=== PATIENT | male | born 1980 | race Caucasian/White ===

== ENCOUNTER 2017-02-17 11:07 | Emergency (ER) | payer SELFPAY ==
[2017-02-17 12:19] VITALS: BP 165/97
[2017-02-17] MEDS ORDERED: Albuterol 2.5 MG/3 ML NEB.SOL* (0.083%) INH ONE (13:05)
[2017-02-17] MEDS ORDERED: Ipratropium 0.5MG/2.5ML NEB* 0.5 MG/2.5 ML NEB.SOLN INH ONE (13:05)
--- NOTE | 2017-02-17 13:59 | UC ---
Dudley Cueto Anna, scribed for Eula Powers DO on 02/17/17 at 1305 . Respiratory Complaint HPI - HPI Summary HPI Summary: Patient is a 36 y/o male coming to [facility] [place] presenting with the gradual onset of an intermittent, productive cough that began midday four days ago. His chest congested. He has had a sore throat of severity 2/10. It does not hurt to swallow. His chest and throat feel pruritic and give him the urge to cough. He has had myalgia and SOB with wheezing. In the last few days, he has had nasal congestion. Denies fever, chills, ear ache, watery eyes, nausea, emesis, abdominal pain. He has not been using his inhaler. His history is significant for asthma and HTN. Patient medications were reviewed this visit. - History of Current Complaint Chief Complaint: UCRespiratory Stated Complaint: COUGH RESP ISSUE Time Seen by Provider: 02/17/17 12:53 Hx Obtained From: Patient Onset/Duration: Gradual Onset, Lasting Days, Still Present Severity Initially: Moderate Severity Currently: Moderate Pain Intensity: 2 Pain Scale Used: 0-10 Numeric Character: Cough: Productive Aggravating Factors: Nothing Alleviating Factors: Nothing Associated Signs And Symptoms: Positive: Wheezing, Nasal Congestion. Negative: Fever, Chills, Sinus Discomfort - Allergies/Home Medications Allergies/Adverse Reactions: Allergies Allergy/AdvReac Type Severity Reaction Status Date / Time CLAMS Allergy Nausea And Uncoded 02/17/17 12:19 Vomiting Home Medications: Home Medications Ibuprofen TAB* [Advil TAB*] 400 mg PO QID PRN 02/17/17 [History Confirmed ] PMH/Surg Hx/FS Hx/Imm Hx Cardiovascular History Of: Reports: Hypertension - NO TREATMENT/"MILD" PER PT. Respiratory History Of: Reports: Asthma - H/O Neurological History Of: Reports: Seizures - ONE EPISODE 5 YRS AGO, Migraine - 2 EPISODWS-ONE 5 YRS AGO AND ONE THIS WINTER. NO MEDS - Surgical History Surgical History: Yes Surgery Procedure, Year, and Place: RIGHT WRIST SURGERY - Family History Known Family History: Positive: Cardiac Disease, Hypertension - Social History Alcohol Use: Weekly Alcohol Amount: 3-4 drinks Substance Use Type: None Substance Use Comment - Amount & Last Used: TWICE A YEAR Smoking Status (MU): Former Smoker Have You Smoked in the Last Year: Yes When Did the Patient Quit Smoking/Using Tobacco: 2014 Household Exposure Type: Cigarettes - Immunization History Most Recent Influenza Vaccination: 2014 Review of Systems Constitutional: Negative Skin: Negative Eyes: Negative ENT: Sore Throat - pruritic, Other - nasal congestion Respiratory: Shortness Of Breath - with wheezing, Cough Cardiovascular: Chest Pain - chest "heaviness" Gastrointestinal: Negative Genitourinary: Negative Motor: Negative Neurovascular: Negative Musculoskeletal: Myalgia Neurological: Negative Psychological: Negative All Other Systems Reviewed And Are Negative: Yes Physical Exam Triage Information Reviewed: Yes Appearance: Well-Appearing, No Pain Distress, Well-Nourished Vital Signs: Initial Vital Signs Temp 98.0 F 02/17/17 12:17 Pulse 89 02/17/17 12:17 Resp 16 02/17/17 12:17 BP 165/97 02/17/17 12:17 Pulse Ox 98 02/17/17 12:17 BP upon PE 140/89. Elevated BP noted. Vital Signs Reviewed: Yes Eyes: Positive: Conjunctiva Clear. Negative: Discharge ENT: Positive: Hearing grossly normal, Pharynx normal, TMs normal. Negative: Nasal congestion, Nasal drainage, Tonsillar swelling, Tonsillar exudate, Trismus , Muffled/hoarse voice Neck: Positive: Supple, Nontender Respiratory: Positive: No respiratory distress, No accessory muscle use, Wheezing - Diffuse tight wheezing, all hankins Cardiovascular: Positive: RRR, No Murmur Musculoskeletal Exam: Normal Neurological: Positive: Alert, Muscle Tone Normal Psychological Exam: Normal Psychological: Positive: Age Appropriate Behavior Skin Exam: Other - warm, dry, normal color UC Diagnostic Evaluation - Laboratory O2 Sat by Pulse Oximetry: 98 Re-Evaluation - Re-Evaluation First Eval Re-Evaluation Time: 13:27 Change: Improved Comment: S/p nebulizer, there is subjective improvement in ease of breathing. On ausculation, wheezing is still present though somewhat dimminished with better air movement. Respiratory Course/Dx - Course Course Of Treatment: Discussed with patient the importance of following up on elevated blood pressure with primary care provider. - Differential Dx/Diagnosis Differential Diagnosis/HQI/PQRI: Asthma, Bronchitis, Lower Resp Infection Provider Diagnoses: URI. Bronchospasm. Blood pressure in poor control. Discharge - Discharge Plan Condition: Stable Disposition: HOME Prescriptions: Albuterol HFA INHALER* [Ventolin HFA Inhaler*] 2 puff INH Q4H PRN #1 mdi PRN Reason: Sob/Wheezing Benzonatate CAP* [Tessalon 100 MG CAP*] 100 mg PO TID PRN #30 cap PRN Reason: Cough guaiFENesin ER TAB [Mucinex*] 600 mg PO BID PRN #1 box PRN Reason: Cough guaiFENesin/CODIEN 100MG-10MG* [Robitussin AC 100Mg-10Mg*] 5 - 10 ml PO BEDTIME PRN #100 udc MDD 10ml PRN Reason: Cough predniSONE TAB* [Deltasone TAB*] 40 mg PO DAILY #10 tab Patient Education Materials: Upper Respiratory Infection (ED), Bronchospasm (ED ) Referrals: Mari Choe MD [Primary Care Provider] - If Needed Additional Instructions: INHALED BRONCHODILATORS: You have received a prescription for an inhaled bronchodilator -- a medication which stimulates the airways in the lung to dilate. This improves the flow of air in asthma, bronchitis, and emphysema. These medicines have some similarity to adrenaline, and can cause similar side effects: shakiness, racing heart, and a sense of nervousness. These side effects decrease with time. Contact your doctor if these side effects are severe. Do not over-use the medicine. Too-frequent use of the inhaler may make it ineffective. Call your doctor if the inhaler is not controlling your symptoms at the prescribed doses. COUGH-SUPPRESSANT & EXPECTORANT MEDICATION: You are to use a cough medication as needed for relief of symptoms. This medicine is a combination of an expectorant (to make the mucous thinner and more easily "coughed up") and a cough suppressant (to reduce the frequency of coughing). The cough-suppressant medicine is related to narcotics. You may experience mild nausea and sleepiness. Some patients who are very sensitive to narcotics may have stomach pain from this medicine. Taking the medicine with food reduces these side effects. Do not drive or work with machinery until you know how this medicine affects you. The expectorant should have no side effects. Iodine-containing expectorants (such as organidin) should not be taken by persons with active thyroid disease unless approved by your doctor. Call the doctor if you develop shortness of breath, hives, rash, itching, lightheadedness, or severe nausea and vomiting. EXPECTORANT MEDICATION: WE SENT IN A SCRIPT FOR MUCINEX SO THAT IT IS EASIER FOR YOU TO PICK THE RIGHT MED AT THE PHARMACY. HOWEVER, YOU CAN ALSO GO TO THE NATURAL FOOD STORE AND BUY PLAIN GUAIFENESIN WITHOU BINDERS OR FILLERS. An expectorant medicine has been prescribed. This type of drug makes mucous thinner, helping the sinuses, nose, and bronchial tubes to remain free of pus and mucous. Expectorants make a cough less severe and more comfortable, and help infected sinuses drain. In general, antihistamines defeat the purpose of the expectorant by making mucous thicker. They should be avoided unless specifically recommended by your physician. TESSALON PERLES: You have received a prescription for Tessalon Perles (benzonatate). This is a non-narcotic medicine for relief of cough. It usually works in about 15- 20 minutes and lasts around four hours. Tessalon Perles should be swallowed. They should not be chewed or dissolved in the mouth (this can produce temporary numbing of the mouth and choking can occur). If you develop any adverse effects such as wheezing, shortness of breath, hives, rash, itching, or lightheadedness, please return at once. CORTICOSTEROID MEDICATION: You have been given a medicine of the cortisone class. This medication is used to control inflammation or allergy. It is usually only given for a short period of time, until the acute process subsides. There are usually no side effects from short-term use of cortisone-like medications. Some persons feel an increased sense of well-being and are not sleepy at bedtime. Long-term use of cortisone medications is best avoided, unless required for a severe condition. If your condition does not remit, or relapses after the course of corticosteroid medication, you should consult your physician. Contact the physician if you develop lightheadedness, black or tarry stools , swelling of the legs, or significant rapid change in weight. The documentation as recorded by the Dudley morales Anna accurately reflects the service I personally performed and the decisions made by , Eula Powers DO.
== END 2017-02-17 13:50 | disposition home or self-care (01) ==
LOC: UCEAST 11:07
DX: J06.9 Acute upper respiratory infection, unspecified (principal); J98.01 Acute bronchospasm; I10 Essential (primary) hypertension; Z87.891 Personal history of nicotine dependence
CPT/HCPCS: 99212; G0463; J7644

== ENCOUNTER 2017-12-02 15:17 | Emergency (ER) | payer SELFPAY ==
[2017-12-02 15:27] VITALS: BP 143/102
--- NOTE | 2017-12-02 15:54 | RAD ---
INDICATION: Right hand injury. COMPARISON: Comparison is made with a prior x-ray study of the right wrist from February 27, 2016. TECHNIQUE: 4 views of the right hand were obtained. FINDINGS: There is soft tissue swelling present along the medial aspect of the hand and wrist. There appears to be a nondisplaced fracture present at the base of the fifth metacarpal. The patient is status post resection of the scaphoid lunate and triquetral bones. IMPRESSION: 1. NONDISPLACED FRACTURE BASE OF THE FIFTH METACARPAL. 2. POST SURGICAL CHANGES.
--- NOTE | 2017-12-02 16:15 | UC ---
Onel Cueto Gabriel, scribed for Thais Velez MD on 12/02/17 at 1534 . Hand/Wrist HPI - HPI Summary HPI Summary: This patient is a 37 year old M [place] [facility] [place] chief complaint of right hand pain since 3 weeks ago. Patient states he punched an immovable object and is since has been experiencing pain at the 5th metacarpal. The patient rates the pain 5/10 in severity. Pt states discomfort improves during the weekends, but increases when he goes back to work and starts using it again. pt iwth RHD. Patient denies numbness/tingling, wrist and shoulder pain. He is right handed and hand surgery to this hand [address] Schaffer. no analgesia taken No recent ice taken. Pt states in the days following the injury he had ecchymosis on the palmar surface. Since this Patients medication reviewed during this visit. - History Of Current Complaint Chief Complaint: UCUpperExtremity Stated Complaint: HAND INJURY Time Seen by Provider: 12/02/17 15:29 Hx Obtained From: Patient Onset/Duration: Lasting Weeks, Still Present Severity Initially: Moderate Severity Currently: Moderate Pain Intensity: 5 Pain Scale Used: 0-10 Numeric Aggravating Factor(s): Movement, Flexion, Extension Alleviating Factor(s): Rest Associated Signs And Symptoms: Negative: Numbness/Tingling - Allergies/Home Medications Allergies/Adverse Reactions: Allergies Allergy/AdvReac Type Severity Reaction Status Date / Time CLAMS Allergy Nausea And Uncoded 12/02/17 15:26 Vomiting Home Medications: Home Medications NK [No Home Medications Reported] 12/02/17 [History Confirmed 12/02/17] PMH/Surg Hx/FS Hx/Imm Hx Previously Healthy: Yes Other History Of: Negative For: Anticoagulant Therapy - Surgical History Surgical History: Yes Surgery Procedure, Year, and Place: RIGHT WRIST SURGERY - Family History Known Family History: Positive: Cardiac Disease, Hypertension - Social History Occupation: Employed Full-time Lives: With Family Alcohol Use: Weekly Alcohol Amount: 3-4 drinks Substance Use Type: None Substance Use Comment - Amount & Last Used: TWICE A YEAR Smoking Status (MU): Former Smoker Have You Smoked in the Last Year: Yes When Did the Patient Quit Smoking/Using Tobacco: 2014 Household Exposure Type: Cigarettes - Immunization History Most Recent Influenza Vaccination: 2014 Review of Systems Skin: Bruising - resolved Musculoskeletal: Other: - pain at right hand Neurological: Negative - numbness All Other Systems Reviewed And Are Negative: Yes Physical Exam Triage Information Reviewed: Yes Appearance: Well-Appearing, No Pain Distress, Well-Nourished Vital Signs: Initial Vital Signs Temp 97.2 F 12/02/17 15:22 Pulse 57 12/02/17 15:22 Resp 18 12/02/17 15:22 BP 143/102 12/02/17 15:22 Pulse Ox 99 12/02/17 15:22 Vital Signs Reviewed: Yes Eyes: Positive: Conjunctiva Clear ENT: Positive: Pharynx normal Neck: Positive: Supple Respiratory: Positive: No respiratory distress, No accessory muscle use Cardiovascular: Positive: Other: - 2+ radial, 2+ ulnar CBT 2 sec Musculoskeletal: Positive: Other: - + flex/ext elbow + supinate/pronate + flex/ ext wrist + TTP base 4/5th MC no pain other MC, all phalanges no snuffbox pain Neurological Exam: Normal Neurological: Positive: Alert, Muscle Tone Normal, Other: - + thumb up, a ok, finger cross, finger spread + gross sensation 5/5 grasp Psychological Exam: Normal Psychological: Positive: Normal Response To Family Procedures - Splinting Location: Forearm to hand- volar aspect + verbal permission Hand-Made Type: orthoglass Splint: volar Pre-Proc Neuro Vasc Exam: normal Post-Proc Neuro Vasc Exam: normal - Tolerated well Diagnostics - Radiology hand xray Radiology Interpretation Completed By: Radiologist - 1. NONDISPLACED FRACTURE BASE OF THE FIFTH METACARPAL. 2. POST SURGICAL CHANGES. Dr. Velez has reviewed this report. Hand/Wrist Course/Dx - Course Course Of Treatment: Blood pressure noted and patient informed to follow up with PCP. Pt with pain right 5th MC s/p puching object 3 weeks prior to presentation. Pt with nondisplaced fx tahir 5th MC. Placed in volar splint. pt referred to Dr. Schaffer - previous surgeon 2016. work note. sling. pt comfortable and in agreement with plan - Differential Dx/Diagnosis Provider Diagnoses: Elevated blood pressure without a previous diagnoses of hypertension. 5th MC fracture Discharge - Discharge Plan Condition: Stable Disposition: HOME Patient Education Materials: Hand Fracture (ED) Forms: *Work Release Referrals: Mari Choe MD [Primary Care Provider] - Jane Schaffer MD [Medical Doctor] - As Soon As Possible Additional Instructions: - wear splint until you are evaluated by the orthopedic provider - Okay to alternate ibuprofen (Advil, Motrin) and Tylenol every 3 hours for pain. Take with food - Okay to apply ice (not directly to skin) 2-3 times a day to help with swelling and pain - Contact the Dr Schaffer to schedule a follow-up appointment this week - avoid further trauma to the area Contact the orthopedic provider or return with questions or concerns Your blood pressure was elevated during today's visit. Please follow up with your primary care provider in 1-2 weeks. The documentation as recorded by the Onel morales Gabriel accurately reflects the service I personally performed and the decisions made by me, Thais Velez MD.
== END 2017-12-02 16:25 | disposition home or self-care (01) ==
LOC: UCEAST 15:17
DX: S62.346A Nondisplaced fracture of base of fifth metacarpal bone, right hand, initial encounter for closed fracture (principal); W22.09XA Striking against other stationary object, initial encounter; Y93.9 Activity, unspecified; Y92.9 Unspecified place or not applicable; R03.0 Elevated blood-pressure reading, without diagnosis of hypertension
CPT/HCPCS: 26600; 99212; G0463

== ENCOUNTER 2018-03-29 16:43 | Emergency (ER) | payer SELFPAY ==
[2018-03-29 16:48] VITALS: BP 146/103
--- NOTE | 2018-03-29 17:34 | UC ---
Cardiac HPI - HPI Summary HPI Summary: ONSET OF LEFT ANTERIOR CHEST PRESSURE THAT RADIATES UP INTO HIS LEFT NECK AND DOWN HIS ARM ASSOCIATED WITH SOME MILD SHORTNESS OF BREATH. STARTED ABOUT 1 PM TODAY WHEN PATIENT WAS REALING UP HIS GARDEN HOSE. PATIENT STATES HE "FEELS WEIRD ". HE DID SOME BRISK WALKING IN HIS DRIVEWAY AND STATES THE PAIN GOT A LITTLE BIT WORSE. HE WENT TO A PHARMACY AND CHECKED HIS BLOOD PRESSURE AND FOUND IT TO BE 155/110. HE DENIES NAUSEA. NO SWEATS. HAS A HISTORY OF HIGH BLOOD PRESSURE BUT IS NOT ON ANY MEDICATIONS HE IS WORKING ON EXERCISE AND WEIGHT LOSS. HE IS A FORMER SMOKER AND HAS A FAMILY HISTORY OF HEART DISEASE. HE HAD A SIMILAR EPISODE EARLIER IN THE WEEK BUT DID NOT SEEK ANY MEDICAL ATTENTION AT THAT TIME. PATIENT CHEWED ON 5-6 81MG EC [employer]. - History of Current Complaint Chief Complaint: UCChestPain Stated Complaint: CHEST PAIN,JAW PRESSURE Time Seen by Provider: 03/29/18 17:05 Hx Obtained From: Patient, Family/Histology Assistant - Onset/Duration: Sudden Onset, Lasting Hours, Still Present Timing: Constant Initial Severity: Moderate Current Severity: Moderate Pain Intensity: 2 Chest Pain Location: Left Anterior Character: Skipped Beats, Pressure/Squeezing Aggravating Factor(s): Exertion Alleviating Factor(s): Nothing Associated Signs & Symptoms: Positive: Chest Pain, Anxiety, SOB, Palpitations. Negative: Fever, Nausea/Vomiting - Allergy/Home Medications Allergies/Adverse Reactions: Allergies Allergy/AdvReac Type Severity Reaction Status Date / Time CLAMS Allergy Nausea And Uncoded 03/29/18 16:53 Vomiting PMH/Surg Hx/FS Hx/Imm Hx Cardiovascular History: Hypertension Respiratory History: Asthma Other History Of: Negative For: Anticoagulant Therapy - Surgical History Surgical History: Yes Surgery Procedure, Year, and Place: RIGHT WRIST SURGERY - Family History Known Family History: Positive: Cardiac Disease, Hypertension - Social History Alcohol Use: Weekly Alcohol Amount: 3-4 drinks Substance Use Type: None Substance Use Comment - Amount & Last Used: TWICE A YEAR Smoking Status (MU): Former Smoker Have You Smoked in the Last Year: Yes When Did the Patient Quit Smoking/Using Tobacco: 2014 Household Exposure Type: Cigarettes - Immunization History Most Recent Influenza Vaccination: 2014 Review of Systems Constitutional: Negative Respiratory: Shortness Of Breath Cardiovascular: Palpitations, Chest Pain Gastrointestinal: Negative Psychological: Anxious All Other Systems Reviewed And Are Negative: Yes Physical Exam Triage Information Reviewed: Yes Appearance: Well-Appearing, No Pain Distress, Well-Nourished Vital Signs: Initial Vital Signs Temp 98 F 03/29/18 16:45 Pulse 105 03/29/18 16:45 Resp 16 03/29/18 16:45 BP 146/103 03/29/18 16:45 Pulse Ox 100 03/29/18 16:45 Vital Signs Reviewed: Yes Eyes: Positive: Conjunctiva Clear ENT: Positive: Hearing grossly normal Neck: Positive: Supple, Nontender, No Lymphadenopathy Respiratory Exam: Normal Cardiovascular: Positive: Tachycardia Abdomen Description: Positive: Soft Musculoskeletal: Positive: No Edema Neurological: Positive: Alert Psychological: Positive: Normal Response To Family, Age Appropriate Behavior Skin: Negative: rashes Diagnostics - EKG Cardiac Rate: Tachycardia - 111BPM Cardiac Rhythm: Sinus: Normal Ectopy: PVCs ST Segment: Normal - Assessment/Plan Course Of Treatment: TO [facility] [place] [facility] BY AMBULANCE - Clinical Impression Provider Diagnoses: CHEST PAIN - Physician Notifications Discussed Patient Care With: Yung Cedillo - TO [facility] [facility] BY AMBULANCE Time Discussed With Above Provider: 17:36 Instructed by Provider To: MD Will See In ED Discharge - Sign-Out/Discharge Documenting (check all that apply): Discharge/Admit/Transfer - Discharge Plan Condition: Stable Disposition: TRANS HIGHER LVL OF CARE FAC Referrals: Mari Choe MD [Primary Care Provider] - - Billing Disposition and Condition Condition: STABLE Disposition: Trans Higher Lvl of Care Fac
== END 2018-03-29 17:45 | disposition short-term general hospital (02) ==
LOC: UCEAST 16:43
DX: R07.9 Chest pain, unspecified (principal); Z87.891 Personal history of nicotine dependence; Z82.49 Family history of ischemic heart disease and other diseases of the circulatory system; I10 Essential (primary) hypertension
CPT/HCPCS: 93005; 99213; G0463

== ENCOUNTER 2018-03-29 18:07 | Emergency (ER) | payer SELFPAY ==
[2018-03-29 19:07] LABS: ABS Basophils 0.1 10^3/ul (0-0.2); ABS Eosinophils 0 10^3/ul (0-0.6); ABS Lymphocytes 0.8 10^3/ul (1.0-4.8); ABS Monocytes 0.4 10^3/ul (0-0.8); ABS Neutrophils 5.4 10^3/ul (1.5-7.7); ABS Nucleated RBC 0 10^3/ul; Eosinophil % 0.6 % (0-6); Hematocrit 41 % (42-52); Hemoglobin 13.9 g/dl (14.0-18.0); Lymphocyte % 12.6 % (25-47); Mean Corpuscular HGB Conc 34 g/dl (31-36); Mean Corpuscular Hemoglobin 30 pg (27-31); Mean Corpuscular Volume 87 fL (80-94); Mean Platelet Volume 8.6 um3 (7.4-10.4); Nucleated Red Blood Cells % 0; Platelet Count 216 10^3/ul (150-450); Red Cell Distribution Width 14 % (10.5-15); White Blood Count 6.7 10^3/ul (3.5-10.8)
--- NOTE | 2018-03-29 19:13 | RAD ---
INDICATION: Chest pain. COMPARISON: Comparison is made with prior study from August 14, 2014. TECHNIQUE: A portable view of the chest was obtained. FINDINGS: Cardiac and mediastinal contours appear to be within normal limits. The lungs are clear. No pleural effusion is seen. IMPRESSION: NO EVIDENCE FOR ACUTE DISEASE.
[2018-03-29 19:28] LABS: EGFR Non-African American 93.2 (>60)
[2018-03-29 21:46] VITALS: BP 140/90
--- NOTE | 2018-03-29 21:51 | ED ---
Watson Cueto Tariq, scribed for Rustam Cabello MD on 03/29/18 at 1819 . HPI Chest Pain - HPI Summary HPI Summary: A 37 y/o male CHUCHO presents to ED c/o chest pain. According to the pt, he has felt pressure/sore in his chest since noon that is radiating to his armpit, arm and jaw. The pain started right at noon, but has varied in degrees ever since. Additionally, the pt noted he has been feeling anxious and a feeling that something is wrong. Patient denies SOB. He stated that he currently has no pain , but he feels aching all over his chest. He also gets winded easily with some active moment and exercise. The patient went to and found that his heart rate was 100 BPM and skipping a beat via EKG. Additionally, he has high blood pressure that is fluctuating. According to his PCP, he is borderline diabetic and does not take any medication. To alleviate symptoms, pt took aspirin (3 tablets at 1400), magnesium tablets and drank cocunut water. It was noted that the pt is currently on a diet plan and has lost 25 - [address] pounds[address] Mari Choe. PMHx of asthma (childhood asthmatic with broncospasms given two inhalers and albuterol, no current medication). FHx of COPD and NV. - History of Current Complaint Chief Complaint: EDChestPainROMI Time Seen by Provider: 03/29/18 18:12 Hx Obtained From: Patient Onset/Duration: Started Hours Ago, Still Present - Diffuse chest aching, Resolved - No chest pain Timing: Constant Current Severity: None Pain Intensity: 0 Pain Scale Used: 0-10 Numeric Chest Pain Location: Diffuse Chest Pain Radiates: Yes Chest Pain Radiates To:: Arm, Jaw, Neck Aggravating Factor(s): Other: - Active movement and exercise Alleviating Factor(s): Rest, OTC Meds, Other: - Magnesium tablets and coconut water Associated Signs and Symptoms: Positive: Chest Pain. Negative: Shortness of Breath - Allergy/Home Medications Allergies/Adverse Reactions: Allergies Allergy/AdvReac Type Severity Reaction Status Date / Time clams Allergy Nausea And Verified 03/29/18 18:15 Vomiting Home Medications: Home Medications Fish Oil 1,000 mg Softgel 1 cap PO DAILY 03/29/18 [History Confirmed 03/29/18] PMH/Surg Hx/FS Hx/Imm Hx Endocrine/Hematology History: Denies: Hx Anticoagulant Therapy, Hx Diabetes, Hx Thyroid Disease Cardiovascular History: Reports: Hx Hypertension - NO TREATMENT/"MILD" PER PT. Respiratory History: Reports: Hx Asthma - H/O, Hx Sleep Apnea - DOESN'T USE C- PAP Denies: Hx Chronic Obstructive Pulmonary Disease (COPD), Other Respiratory Problems/Disorders GI History: Reports: Hx Gastroesophageal Reflux Disease - INFREQUENT Denies: Hx Ulcer Musculoskeletal History: Reports: Hx Arthritis - RIGHT WRIST, Other Musculoskeletal History - H/O SCIATICA Sensory History: Denies: Hx Contacts or Glasses, Hx Hearing Aid Opthamlomology History: Denies: Hx Contacts or Glasses Neurological History: Reports: Hx Migraine - 2 EPISODWS-ONE 5 YRS AGO AND ONE THIS WINTER. NO MEDS, Hx Seizures - ONE EPISODE 5 YRS AGO, Other Neuro Impairments/Disorders - SCIATICA RIGHT WRIST PAIN - Surgical History Surgery Procedure, Year, and Place: RIGHT WRIST SURGERY Hx Anesthesia Reactions: No Infectious Disease History: No Infectious Disease History: Denies: Hx Clostridium Difficile, Hx Hepatitis, Hx Human Immunodeficiency Virus (HIV), Hx of Known/Suspected MRSA, Hx Shingles, Hx Tuberculosis, Hx Known/ Suspected VRE, Hx Known/Suspected VRSA, History Other Infectious Disease, Traveled Outside the [place] in Last 30 Days - Family History Known Family History: Positive: Cardiac Disease, Hypertension - Social History Alcohol Use: Weekly Alcohol Amount: 3-4 drinks Substance Use Type: Reports: None Substance Use Comment - Amount & Last Used: TWICE A YEAR Smoking Status (MU): Former Smoker Have You Smoked in the Last Year: Yes Review of Systems Negative: Fever Positive: Chest Pain Negative: Shortness Of Breath All Other Systems Reviewed And Are Negative: Yes Physical Exam - Summary Physical Exam Summary: Appearance: The patient is well-nourished in no acute distress and in no acute pain. Skin: The skin is warm and dry and skin color reflects adequate perfusion. HEENT: The head is normocephalic and atraumatic. The pupils are equal and reactive. The conjunctivae are clear and without drainage. Nares are patent and without drainage. Mouth reveals moist mucous membranes and the throat is without erythema and exudate. The external ears are intact. The ear canals are patent and without drainage. The tympanic membranes are intact. Neck: The neck is supple with full range of motion and non-tender. There are no carotid bruits. There is no neck vein distension. Respiratory: Chest is non-tender. Lungs are clear to auscultation and breath sounds are symmetrical and equal. Cardiovascular: Heart is regular rate and rhythm. There is no murmur or rub auscultated. There is no peripheral edema and pulses are symmetrical and equal. Abdomen: The abdomen is soft and non-tender. There are normal bowel sounds heard in all four quadrants and there is no organomegaly palpated. Musculoskeletal: There is no back tenderness noted. Extremities are non-tender with full range of motion. There is good capillary refill. There is no peripheral edema or calf tenderness elicited. Neurological: Patient is alert and oriented to person, place and time. The patient has symmetrical motor strength in all four extremities. Cranial nerves are grossly intact. Deep tendon reflexes are symmetrical and equal in all four extremities. Psychiatric: The patient has an appropriate affect and does not exhibit any anxiety or depression. Triage Information Reviewed: Yes Vital Signs On Initial Exam: Initial Vitals Temp Pulse Resp BP Pulse Ox 98.3 F 83 14 166/104 100 03/29/18 18:12 03/29/18 18:12 03/29/18 18:12 03/29/18 18:12 03/29/18 18:12 Vital Signs Reviewed: Yes Diagnostics - Vital Signs Vital Signs Temp Pulse Resp BP Pulse Ox 03/29/18 18:12 98.3 F 83 14 166/104 100 - Laboratory Lab Results: Lab Results 03/29/18 03/29/18 03/29/18 Range/Units 18:55 18:55 18:55 WBC 6.7 (3.5-10.8) 10^3/ul RBC 4.70 (4.00-5.40) 10^6/ul Hgb 13.9 L (14.0-18.0) g/dl Hct 41 L (42-52) % MCV 87 (80-94) fL MCH 30 (27-31) pg MCHC 34 (31-36) g/dl RDW 14 (10.5-15) % Plt Count 216 (150-450) 10^3/ul MPV 8.6 (7.4-10.4) um3 Neut % (Auto) 80.6 (38-83) % Lymph % (Auto) 12.6 L (25-47) % Grainger % (Auto) 5.3 (0-7) % Eos % (Auto) 0.6 (0-6) % Baso % (Auto) 0.9 (0-2) % Absolute Neuts (auto) 5.4 (1.5-7.7) 10^3/ul Absolute Lymphs (auto) 0.8 L (1.0-4.8) 10^3/ul Absolute Monos (auto) 0.4 (0-0.8) 10^3/ul Absolute Eos (auto) 0 (0-0.6) 10^3/ul Absolute Basos (auto) 0.1 (0-0.2) 10^3/ul Absolute Nucleated RBC 0 10^3/ul Nucleated RBC % 0 D-Dimer, Quantitative < 200 (Less Than 230) ng/mL Sodium 140 (135-145) mmol/L Potassium 4.0 (3.5-5.0) mmol/L Chloride 104 (101-111) mmol/L Carbon Dioxide 25 (22-32) mmol/L Anion Gap 11 (2-11) mmol/L BUN 12 (6-24) mg/dL Creatinine 0.91 (0.67-1.17) mg/dL Est GFR ( Amer) 112.8 (>60) Est GFR (Non-Af Amer) 93.2 (>60) BUN/Creatinine Ratio 13.2 (8-20) Glucose 95 (70-100) mg/dL Lactic Acid (0.5-2.0) mmol/L Calcium 9.7 (8.6-10.3) mg/dL Magnesium 2.3 (1.9-2.7) mg/dL Total Bilirubin 0.60 (0.2-1.0) mg/dL AST 17 (13-39) U/L ALT 22 (7-52) U/L Alkaline Phosphatase 37 (34-104) U/L Troponin I 0.01 (<0.04) ng/mL Total Protein 7.2 (6.4-8.9) g/dL Albumin 4.5 (3.2-5.2) g/dL Globulin 2.7 (2-4) g/dL Albumin/Globulin Ratio 1.7 (1-3) TSH 1.21 (0.34-5.60) mcIU/mL 03/29/18 03/29/18 Range/Units 18:55 21:14 WBC (3.5-10.8) 10^3/ul RBC (4.00-5.40) 10^6/ul Hgb (14.0-18.0) g/dl Hct (42-52) % MCV (80-94) fL MCH (27-31) pg MCHC (31-36) g/dl RDW (10.5-15) % Plt Count (150-450) 10^3/ul MPV (7.4-10.4) um3 Neut % (Auto) (38-83) % Lymph % (Auto) (25-47) % Grainger % (Auto) (0-7) % Eos % (Auto) (0-6) % Baso % (Auto) (0-2) % Absolute Neuts (auto) (1.5-7.7) 10^3/ul Absolute Lymphs (auto) (1.0-4.8) 10^3/ul Absolute Monos (auto) (0-0.8) 10^3/ul Absolute Eos (auto) (0-0.6) 10^3/ul Absolute Basos (auto) (0-0.2) 10^3/ul Absolute Nucleated RBC 10^3/ul Nucleated RBC % D-Dimer, Quantitative (Less Than 230) ng/mL Sodium (135-145) mmol/L Potassium (3.5-5.0) mmol/L Chloride (101-111) mmol/L Carbon Dioxide (22-32) mmol/L Anion Gap (2-11) mmol/L BUN (6-24) mg/dL Creatinine (0.67-1.17) mg/dL Est GFR ( Amer) (>60) Est GFR (Non-Af Amer) (>60) BUN/Creatinine Ratio (8-20) Glucose (70-100) mg/dL Lactic Acid 1.3 (0.5-2.0) mmol/L Calcium (8.6-10.3) mg/dL Magnesium (1.9-2.7) mg/dL Total Bilirubin (0.2-1.0) mg/dL AST (13-39) U/L ALT (7-52) U/L Alkaline Phosphatase (34-104) U/L Troponin I 0.00 (<0.04) ng/mL Total Protein (6.4-8.9) g/dL Albumin (3.2-5.2) g/dL Globulin (2-4) g/dL Albumin/Globulin Ratio (1-3) TSH (0.34-5.60) mcIU/mL Result Diagrams: 03/29/18 18:55 03/29/18 18:55 Lab Statement: Any lab studies that have been ordered have been reviewed, and results considered in the medical decision making process. - Radiology CXR Xray Interpretation: No Acute Changes Radiology Interpretation Completed By: Radiologist - NO EVIDENCE FOR ACUTE DISEASE. ED PHYSICIAN REVIEWED THIS RADIOLOGY REPORT. - EKG 184 Cardiac Rate: NL - 75 BPM EKG Rhythm: Sinus Rhythm Re-Evaluation - Re-Evaluation First Eval Re-Evaluation Time: 21:46 Comment: TROPONIN IS 0.00. DISCUSSED DISCHARGE WITH PATIENT. Chest Pain Course/Dx - Course Course Of Treatment: Mr. Aguilar came in for an atypical chest pain. He doesn't have a lot in the way of risk factors and his EKG, chest x-ray and labs including d-dimer and a delayed troponin were all negative. I recommended follow-up with his PCP. He did have a couple of PVCs and we talked about that also. - Diagnoses Provider Diagnoses: Chest pain Discharge - Sign-Out/Discharge Documenting (check all that apply): Discharge/Admit/Transfer - DISCHARGE - Discharge Plan Condition: Stable Disposition: HOME Patient Education Materials: Chest Pain (ED) Referrals: Mari Choe MD [Primary Care Provider] - 3 Days (FOLLOW UP WITH PRIMARY CARE PHYSICIAN IN 2-3 DAYS.) Additional Instructions: RETURN TO THE ED FOR ANY NEW OR WORSENING SYMPTOMS. - Billing Disposition and Condition Condition: STABLE Disposition: Home The documentation as recorded by the Watson morales Tariq accurately reflects the service I personally performed and the decisions made by me, Rustam Cabello MD.
== END 2018-03-29 22:05 | disposition home or self-care (01) ==
LOC: ED 18:07
DX: R07.9 Chest pain, unspecified (principal); Z87.891 Personal history of nicotine dependence; Z86.79 Personal history of other diseases of the circulatory system; Z82.49 Family history of ischemic heart disease and other diseases of the circulatory system
CPT/HCPCS: 36415; 71045; 80053; 83605; 83735; 84443; 84484; 85025; 85379; 93005; 99283

== ENCOUNTER 2018-09-17 14:33 | Emergency (ER) | payer MEDICAID, OTHER ==
[2018-09-17 15:05] VITALS: BP 150/88
--- NOTE | 2018-09-17 15:20 | UC ---
Truncal Trauma HPI - HPI Summary HPI Summary: 38 yo male presents s/p mechanical fall. He tells me that last night he slipped and his right side fell onto concrete steps. Did not hit his head or have LOC. The area hurt, but wasn't too bad at the time. This morning he has increased pain and hurts to take a deep breath. He took ibuprofen this morning with little relief. Has not been applying ice. Denies coughing, SOB, or chest pain. - History Of Current Complaint Chief Complaint: UCUpperExtremity Stated Complaint: RIB INJURY Time Seen by Provider: 09/17/18 15:20 Hx Obtained From: Patient Severity Initially: Moderate Severity Currently: Moderate Pain Intensity: 7 Pain Scale Used: 0-10 Numeric Mechanism Of Injury: Blunt Trauma - Allergies/Home Medications Allergies/Adverse Reactions: Allergies Allergy/AdvReac Type Severity Reaction Status Date / Time clams Allergy Nausea And Verified 09/17/18 15:04 Vomiting PMH/Surg Hx/FS Hx/Imm Hx - Additional Past Medical History Additional PMH: None Other History Of: Negative For: Anticoagulant Therapy - Surgical History Surgical History: Yes Surgery Procedure, Year, and Place: RIGHT WRIST SURGERY - Family History Known Family History: Positive: Cardiac Disease, Hypertension - Social History Occupation: Employed Full-time Lives: With Family Alcohol Use: Weekly Alcohol Amount: 3-4 drinks Substance Use Type: None Substance Use Comment - Amount & Last Used: TWICE A YEAR Smoking Status (MU): Former Smoker Have You Smoked in the Last Year: Yes When Did the Patient Quit Smoking/Using Tobacco: 2015 Household Exposure Type: Cigarettes - Immunization History Most Recent Influenza Vaccination: 2014 Review of Systems All Other Systems Reviewed And Are Negative: Yes Constitutional: Positive: Negative Skin: Positive: Negative Respiratory: Positive: Negative Cardiovascular: Positive: Negative Gastrointestinal: Positive: Negative Neurovascular: Positive: Negative Musculoskeletal: Positive: Other: - Right rib pain Neurological: Positive: Negative Psychological: Positive: Negative Physical Exam - Summary Physical Exam Summary: GENERAL: NAD. WDWN. No pain distress. SKIN: No rashes, sores, lesions, or open wounds. NECK: Supple. Nontender. No lymphadenopathy. CHEST: CTAB. No r/r/w. No accessory muscle use. Breathing comfortably and in no distress. CV: RRR. Without m/r/g. Pulses intact. Cap refill <2seconds ABDOMEN: Soft. NTTP. No distention or guarding. Bowel sounds present. No ecchymosis MSK: Mild TTP over 7th and 8th right lateral rib. No ecchymosis or open wound. NEURO: Alert. PSYCH: Age appropriate behavior. Triage Information Reviewed: Yes Vital Signs: Initial Vital Signs Temp 98.2 F 09/17/18 15:01 Pulse 88 09/17/18 15:01 Resp 16 09/17/18 15:01 BP 150/88 09/17/18 15:01 Pulse Ox 99 09/17/18 15:01 Vital Signs Reviewed: Yes Truncal Trauma Course/Dx - Course Course Of Treatment: XR: IMPRESSION: NO DISPLACED RIB FRACTURE OR PNEUMOTHORAX. Discussed results with pt. Advised to ice the area and take ibuprofen. Will rx for lidoderm patch prn. - Differential Dx/Diagnosis Provider Diagnosis: Contusion of rib on right side Discharge - Sign-Out/Discharge Documenting (check all that apply): Patient Departure All imaging exams completed and their final reports reviewed: Yes - Discharge Plan Condition: Stable Disposition: HOME Prescriptions: Lidocaine PATCH 5%* [Lidoderm 5% Patch*] 1 patch TRANSDERM DAILY PRN #1 box PRN Reason: Pain Patient Education Materials: Rib Contusion (ED) Referrals: Mari Choe MD [Primary Care Provider] - Additional Instructions: If you develop a fever, shortness of breath, chest pain, new or worsening symptoms - please call your PCP or go to the ED. Your blood pressure was high at todays visit. Please see your primary provider within 4 weeks for recheck and re-evaluation. Rest and apply ice to the area Take slow deep breaths and try to avoid shallow breathing - Billing Disposition and Condition Condition: STABLE Disposition: Home
[2018-09-17] MEDS ORDERED: Ibuprofen TAB* 600 MG PO ONE (16:04)
== END 2018-09-17 16:10 | disposition home or self-care (01) ==
LOC: UCEAST 14:33
DX: S20.211A Contusion of right front wall of thorax, initial encounter (principal); Z91.013 Allergy to seafood; Z87.891 Personal history of nicotine dependence; W01.0XXA Fall on same level from slipping, tripping and stumbling without subsequent striking against object, initial encounter; Y92.9 Unspecified place or not applicable
CPT/HCPCS: 99212; A9270-GY; G0463

== ENCOUNTER 2019-09-22 10:00 | Emergency (ER) | payer OTHER ==
--- OUTSIDE RECORDS SUMMARY | 2019-09-22 10:06 | XMS REPORT | Continuity of Care Document ---
:1980 External Reference #:[id number] Author Name Kimberly Reyez MD Address [address] [place] [address] Problems Active Problems Provider Date Fracture of metacarpal bone Onset: 12/03/2017 Fracture of scaphoid bone of wrist Onset: 02/03/2016 Obesity Onset: 01/13/2016 Social History Type Date Description Comments Sex Unknown Tobacco Use Start: Unknown End: Unknown Patient is a former smoker Smoking Status Reviewed: 09/04/19 Patient is a former smoker Allergies, Adverse Reactions, Alerts Description No Known Drug Allergies Medications Description No Active Medications Immunizations CPT Code Status Date Vaccine Lot # [id number] Given 09/04/2019 Tdap - Boostrix/Adacel [id number] [id number] Given 09/04/2019 Flu < 65 years [id number] 53871 Given 12/29/2015 Influenza Virus Vaccine, Quadrivalent, Split, Im Use 0.25ML 89344 Given 12/29/2015 Influenza Virus Vaccine, Quadrivalent, Split, Im Use 0.25ML 67256 Given 12/29/2015 Influenza Virus Vaccine, Quadrivalent, Split, Im Use 0.25ML 27156 Given 12/29/2015 Flu < 65 years 51727 Given 12/29/2015 Influenza Virus Vaccine, Quadrivalent, Split, Preservative Free 03457 Given 12/29/2015 Flumist 81654 Given 12/29/2015 Flu High Dose 22594 Given 07/20/2014 Influenza Virus Vaccine, Quadrivalent, Split Virus, Im Use 0.5ML 26008 Given 07/20/2014 Flu < 65 years 43076 Given 07/20/2014 Influenza Virus Vaccine, Quadrivalent, Split, Preservative Free 16427 Given 07/20/2014 Flumist 03818 Given 07/20/2014 Flu High Dose Vital Signs Date Vital Result Comment 09/04/2019 8:38am BP Systolic 132 mmHg BP Diastolic 84 mmHg Height 71.25 inches 5'11.25" Weight 242.00 lb Heart Rate 93 /min Body Temperature 97.8 F O2 % BldC Oximetry 99 % BMI (Body Mass Index) 33.5 kg/m2 03/04/2017 6:35pm BP Systolic 138 mmHg Height 70.00 inches 5'10.00" Weight 242.00 lb Heart Rate 99 /min Body Temperature 99.1 F O2 % BldC Oximetry 99 % BMI (Body Mass Index) 34.72 kg/m2 Results Test Acquired Facility Test Result H/L Range Note Date Laboratory 09/04/2019 [facility] TSH (Thyroid Stim 1.84 Normal 0.34-5.6 1, 2 test finding [address] Horm) mcIU/mL 0 [place], [place] [id number] [phone] Lipid Profile 09/04/2019 [facility] Triglycerides 153 mg/dL 3 (Trig/Chol/HDL [address] ) [place], [place] [id number] [phone] Cholesterol 223 mg/dL 4 HDL Cholesterol 55.1 mg/dL 5 LDL Cholesterol 137 mg/dL 6 1 [id number] 2 [id number] 3 Desirable: <150 Borderline High: 150-199 High: 200-499 Very High: >500 4 Desirable: <200 Borderline High: 200-239 High: >239 5 Low: <40 Desirable: 40-60 High: >60 6 Desirable: <100 Near Optimal: 100-129 Borderline High: 130-159 High: 160-189 Very High: >189 Procedures Date Code Description Status 09/04/2019 02584 Brief Emotional/Behav Assessment W/ Scoring Doc Per Completed Standard Inst Medical Devices Description No Information Available Encounters Type Date Location Provider Dx Diagnosis Office Visit 09/04/2019 8:45a [facility] Kimberly Reyez MD R63.5 Abnormal weight gain L85.3 Xerosis cutis Z13.1 Encounter for screening for diabetes mellitus Z13.220 Encounter for screening for lipoid disorders Z00.00 Encntr for general adult medical exam w/o abnormal findings R19.4 Change in bowel habit Assessments Date Code Description Provider 09/04/2019 R63.5 Abnormal weight gain Kimberly Reyez MD 09/04/2019 L85.3 Xerosis cutis Kimberly Reyez MD 09/04/2019 Z13.1 Encounter for screening for diabetes mellitus Kimberly Reyez MD 09/04/2019 Z13.220 Encounter for screening for lipoid disorders Kimberly Reyez MD 09/04/2019 Z00.00 Encounter for general adult medical examination Kimberly Reyez MD without abnormal findings 09/04/2019 R19.4 Change in bowel habit Kimberly Reyez MD Plan of Treatment 09/04/2019 - Kimberly Reyez, MDR63.5 Abnormal weight gainL85.3 Xerosis pnttbY70.1 Encounter for screening for diabetes zqajqkllM15.220 Encounter for screening for lipoid mmxbymvpvI69.00 Encounter for general adult medical examination without abnormal ssbuygteL23.4 Change in bowel habitReferral:Issac Holbrook AllNew Medication:No Active Medications - Functional Status Description No Information Available Mental Status Description No Information Available Referrals Refer to Reason for Referral Status Appt Date Issac Holbrook patient with chronic loose stools, history of Created / 0000 travel to multiple tropical countries and drinking the local water [address] [place] [address] [place] [id number] [phone]
--- OUTSIDE RECORDS SUMMARY | 2019-09-22 10:06 | XMS REPORT | Continuity of Care Document ---
:1980 External Reference #:[id number] Author Name Kimberly Reyez MD Address [address] [place] [address] Problems Active Problems Provider Date Fracture of [...] CPT Code Status Date Vaccine Lot # [id number] Given 09/04/2019 Tdap - Boostrix/Adacel [id number] 99766 Given 09/04/2019 Flu < 65 years [id number] 56375 Given 12/29/2015 Influenza Virus Vaccine, Quadrivalent, Split, Im Use 0.25ML 06518 Given 12/29/2015 Influenza Virus Vaccine, Quadrivalent, Split, Im Use 0.25ML 95552 Given 12/29/2015 Influenza Virus Vaccine, Quadrivalent, Split, Im Use 0.25ML 27298 Given 12/29/2015 Flu < 65 years 43350 Given 12/29/2015 Influenza Virus Vaccine, Quadrivalent, Split, Preservative Free 46979 Given 12/29/2015 Flumist 42636 Given 12/29/2015 Flu High Dose 43711 Given 07/20/2014 Influenza Virus Vaccine, Quadrivalent, Split Virus, Im Use 0.5ML 22943 Given 07/20/2014 Flu < 65 years 02926 Given 07/20/2014 Influenza Virus Vaccine, Quadrivalent, Split, Preservative Free 16147 Given 07/20/2014 Flumist 07243 Given 07/20/2014 Flu High Dose Vital Signs [...] BMI (Body Mass Index) 34.72 kg/m2 Results Description No Information Available Procedures Date Code Description Status 09/04/2019 74163 Brief Emotional/Behav Assessment W/ Scoring Doc Per [...] MD Plan of Treatment 09/04/2019 - Kimberly Reyez MDR63.5 Abnormal weight gainL85.3 Xerosis vicgbD35.1 Encounter for screening for diabetes gjvsikwvB77.220 Encounter for screening for lipoid hdtyehfeiH61.00 Encounter for general adult medical examination without abnormal omevagwxH41.4 Change in bowel habitReferral:Issac Holbrook AllNew Medication:No Active Medications - Functional Status Description No Information Available Mental Status Description No Information Available Referrals Refer to Reason for Referral Status Appt Date Issac Holbrook patient with chronic loose stools, history of Created 00/00/ 0000 travel to multiple tropical countries and drinking the local water [address] [facility] [address] [place] [address] [phone]
--- NOTE | 2019-09-22 10:50 | UC ---
FLU HPI - HPI Summary HPI Summary: 39 yo male presents with cough. He tells me that over the last week has had a worsening productive cough. Notices wheezing at night. He does have a hx of asthma and has old albuterol inhalers at home that he has been using with good intermittent relief. He does feel short of breath at times. He does not smoke. Has felt feverish and reports a fever yesterday. Denies sore throat, chest pain , abdominal pain, n/v. - History of Current Complaint Chief Complaint: UCGeneralIllness Stated Complaint: RESPIRATORY ISSUE Time Seen by Provider: 09/22/19 10:50 Hx Obtained From: Patient Severity Currently: Mild Severity Initially: Mild Pain Intensity: 1 Pain Scale Used: 0-10 Numeric - Allergy/Home Medications Allergies/Adverse Reactions: Allergies Allergy/AdvReac Type Severity Reaction Status Date / Time clams Allergy Nausea And Verified 09/22/19 10:22 Vomiting PMH/Surg Hx/FS Hx/Imm Hx Respiratory History: Asthma Other History Of: Negative For: Anticoagulant Therapy - Surgical History Surgical History: Yes Surgery Procedure, Year, and Place: RIGHT WRIST SURGERY - Family History Known Family History: Positive: Cardiac Disease, Hypertension - Social History Occupation: Employed Full-time Lives: With Family Alcohol Use: Weekly Alcohol Amount: 3-4 drinks Substance Use Type: None Substance Use Comment - Amount & Last Used: TWICE A YEAR Smoking Status (MU): Former Smoker Have You Smoked in the Last Year: Yes When Did the Patient Quit Smoking/Using Tobacco: 2014 Household Exposure Type: Cigarettes - Immunization History Most Recent Influenza Vaccination: 2014 Review of Systems All Other Systems Reviewed And Are Negative: No Constitutional: Positive: Fever, Fatigue Skin: Positive: Negative Eyes: Positive: Negative ENT: Positive: Negative Respiratory: Positive: Shortness Of Breath, Cough Cardiovascular: Positive: Negative Gastrointestinal: Positive: Negative Neurological: Positive: Negative Psychological: Positive: Negative Physical Exam - Summary Physical Exam Summary: GENERAL: NAD. WDWN. No pain distress. SKIN: No rashes, sores, lesions, or open wounds. HEENT: Head: AT/NC Eyes: Conjunctiva clear without inflammation or discharge. Ears: Hearing grossly normal. TMs intact, no bulging, erythema, or edema. Nose: Nasal mucosa pink and moist. NTTP maxillary and frontal sinus. Throat: Posterior oropharynx without exudates, erythema, or tonsillar enlargement. Uvula midline. NECK: Supple. Nontender. No lymphadenopathy. CHEST: Moderate wheezing throughout. No r/r. No accessory muscle use. Breathing comfortably and in no distress. CV: RRR. Pulses intact. Cap refill <2seconds NEURO: Alert. PSYCH: Age appropriate behavior. Vital Signs: Initial Vital Signs Temp 98.7 F 09/22/19 10:18 Pulse 91 09/22/19 10:18 Resp 18 09/22/19 10:18 BP 148/89 09/22/19 10:18 Pulse Ox 99 09/22/19 10:18 Laboratory Tests 09/22/19 10:53 Influenza A (Rapid) Negative Influenza B (Rapid) Negative Vital Signs Reviewed: Yes Diagnostics - Radiology CXR Radiology Interpretation Completed By: Radiologist Summary of Radiographic Findings: IMPRESSION: MINIMAL RIGHT LOWER LUNG CONSOLIDATION. RECOMMEND FOLLOW-UP UNTIL RESOLUTION TO EXCLUDE UNDERLYING PULMONARY PARENCHYMAL PATHOLOGY. Flu Course/Dx - Course Course Of Treatment: CXR as above. In the clinic pt was given a duoneb treatment with great improvement of wheezing and lung sounds. Discussed results with pt. Will place him on zpak and have him f/u with his PCP in 3-4 weeks for a recheck - Differential Dx/Diagnosis Provider Diagnosis: Pneumonia Discharge ED - Sign-Out/Discharge Documenting (check all that apply): Patient Departure All imaging exams completed and their final reports reviewed: Yes - Discharge Plan Condition: Stable Disposition: HOME Prescriptions: Albuterol HFA INHALER* [Ventolin HFA Inhaler*] 1 puff INH Q6H PRN #1 mdi PRN Reason: Sob/Wheezing Azithromycin TAB* [Zithromax TAB (Z-OLIVER) 250 mg #6 tabs] 2 tab PO .TODAY, THEN 1 DAILY #1 oliver predniSONE 50 mg TAB [Deltasone 50 mg TAB] 50 mg PO DAILY #5 tab Patient Education Materials: Pneumonia (ED) Referrals: Mari Choe MD [Primary Care Provider] - Additional Instructions: If you develop a fever, shortness of breath, chest pain, new or worsening symptoms - please call your PCP or go to the ED immediately. Your blood pressure was high at todays visit. Please see your primary provider within 4 weeks for recheck and re-evaluation. Please schedule an appointment with your primary doctor in 4 weeks for a recheck of your pneumonia - Billing Disposition and Condition Condition: STABLE Disposition: Home
[2019-09-22 11:05] LABS: Influenza A Molecular NEGATIVE (Negative); Influenza B Molecular NEGATIVE (Negative)
[2019-09-22] MEDS ORDERED: Albuterol/Ipratropium NEB.SOL* Albuterol 2.5 MG/Ipratropium 0.5 MG 3 ML INH ONE (11:14)
[2019-09-22 12:36] VITALS: BP 142/92
== END 2019-09-22 12:33 | disposition home or self-care (01) ==
LOC: UCEAST 10:00
DX: J18.9 Pneumonia, unspecified organism (principal); J45.909 Unspecified asthma, uncomplicated; Z91.013 Allergy to seafood; Z87.891 Personal history of nicotine dependence
CPT/HCPCS: 71046; 99212; A9270-GY; G0463